=== PATIENT | female | born 1990 | race Caucasian/White ===

== ENCOUNTER 2021-05-23 03:24 | Emergency (ER) | payer SELFPAY ==
[~2021-05-23] VITALS: Ht 152.4 cm; Wt 47.6 kg
[2021-05-23 03:30] VITALS: BP 119/75
--- NOTE | 2021-05-23 03:40 | NUR ---
PT AMBULATED TO BED 06.
--- NOTE | 2021-05-23 03:53 | NUR ---
30 Y/O F BIB FOR LOWER RIGHT QUADRANT SINCE 3 PM ON 05/22/21.PT RATES PAIN 11/30 PT STATES SHE FEELS NAUSEOUS, LETHARGIC, BUT DENIES V/D/COUGH/SOB.PT DENIES PAIN DURING URINATION. PT STATES IT HURTS MORE WHEN SHE WALKS. A&0X4, AMBULATORY PMH: GALLBLADDER REMOVAL, ASTHMA, , OVARIAN CYST RX: ALBUTEROL
[2021-05-23] MEDS ORDERED: NACL 0.9% 1,000 ML IV ONE (03:55)
[2021-05-23] MEDS ORDERED: MORPHINE SULFATE 2 MG/ML SYR IVP ONE (03:55)
[2021-05-23] MEDS ORDERED: NACL 0.9% 1,000 ML IV SCH (03:55)
[2021-05-23] MEDS ORDERED: ONDANSETRON 4 MG/2 ML VIAL IVP ONE (03:55)
--- NOTE | 2021-05-23 04:15 | NUR ---
PT AT BEDSIDE.
[2021-05-23 05:14] LABS: APPEARANCE,URINE CLEAR (CLEAR); BILIRUBIN,URINE NEGATIVE (NEGATIVE); BLOOD, URINE NEGATIVE (NEGATIVE); COLOR,URINE YELLOW (YELLOW); LEUKOCYTE ESTERASE ,URINE NEGATIVE (NEGATIVE); NITRITE, URINE NEGATIVE (NEGATIVE); UGLUCOSE NEGATIVE (NEGATIVE)
[2021-05-23 05:14] LABS: BASOPHILS # (AUTO) 0.1 K/uL (0.00-0.22); BASOPHILS % (AUTO) 0.5 % (0.0-2.0); EOSINOPHILS # (AUTO) 0.9 K/uL (0-0.4); EOSINOPHILS % (AUTO) 9.1 % (0.0-4.0); HEMATOCRIT 46.3 % (36-48); HEMOGLOBIN 15.1 g/dL (12.0-16.0); LYMPHOCYTES # (AUTO) 2.8 K/uL (2.5-16.5); LYMPHOCYTES % (AUTO) 27.8 % (20.5-51.1); MEAN CORPUSCULAR HEMOGLOBIN 30 pg (27-31); MEAN CORPUSCULAR HGB CONC 33 g/dL (33-37); MEAN CORPUSCULAR VOLUME 92.7 fL (80-94); MONOCYTES % (AUTO) 9.6 % (1.7-9.3); NEUTROPHILS # (AUTO) 5.4 K/uL (1.8-7.7); PLATELET COUNT (AUTO) 360 K/uL (140-450); RED BLOOD CELL COUNT(AUTO) 4.99 MIL/uL (4.20-5.40); RED CELL DISTRIBUTION WIDTH 13.9 % (11.6-13.7); WHITE BLOOD COUNT (AUTO) 10.2 K/uL (4.8-10.8)
[2021-05-23 05:34] LABS: ALBUMIN 3.7 g/dL (3.4-5.0); CARBON DIOXIDE 29.8 mmol/L (21-32); CREATININE 0.8 mg/dL (0.6-1.3); POTASSIUM 3.8 mmol/L (3.5-5.1); TOTAL BILIRUBIN 0.3 mg/dL (0.0-1.0)
[2021-05-23 06:21] VITALS: BP 104/74
--- NOTE | 2021-05-23 08:10 | NUR ---
Patient does not wish to proceed with medical care recommended by DR NEUMANN. Patient given information related to possible complications, up to and including , which could occur as a result of leaving hospital at this time. Patient verbalizes understanding of risks involved leaving against medical advice. Patient has signed AMA form.
--- NOTE | 2021-05-23 08:38 | NUR ---
The patient's care was reviewed and supervised by Fidelina Ibrahim RN.
== END 2021-05-23 08:10 | disposition left against medical advice (07) ==
LOC: MED 03:24
DX: R10.31 Right lower quadrant pain (principal); J45.909 Unspecified asthma, uncomplicated; Z79.899 Other long term (current) drug therapy; Z98.890 Other specified postprocedural states; Z90.49 Acquired absence of other specified parts of digestive tract
CPT/HCPCS: 36415; 74177; 80053; 81003; 81025; 84703; 85025; 96361; 96374; 96375; 99285; J2270; J2405; J7030; Q9967